=== PATIENT | male | born 1940 | race Caucasian/White ===

== ENCOUNTER 2023-01-15 11:45 | Inpatient (IN) | payer BC ==
[~2023-01-15] VITALS: Ht 167.6 cm; Wt 63.5 kg
[2023-01-15 12:17] LABS: BASOPHILS % (AUTO) 0.2 % (0.0-2.0); EOSINOPHILS # (AUTO) 0.1 K/uL (0.0-0.7); EOSINOPHILS % (AUTO) 0.5 % (0.0-6.0); HEMATOCRIT 50 % (39-51); HEMOGLOBIN 16.5 g/dL (13.5-17.5); LYMPHOCYTES # (AUTO) 0.3 K/uL (0.8-4.8); LYMPHOCYTES % (AUTO) 3.6 % (20.0-44.0); MEAN CORPUSCULAR HEMOGLOBIN 33 PG (26.0-33.0); MEAN CORPUSCULAR HGB CONC 33 g/dl (31.0-36.0); MEAN CORPUSCULAR VOLUME 100 fL (80-96); MONOCYTES # (AUTO) 0.1 K/uL (0.1-1.30); MONOCYTES % (AUTO) 1.1 % (2.0-12.0); NEUTROPHILS # (AUTO) 9.1 K/uL (1.8-8.9); NEUTROPHILS % (AUTO) 94.6 % (43.0-81.0); PLATELET COUNT (AUTO) 174 K/uL (150-450); RED BLOOD CELL COUNT(AUTO) 4.99 MIL/uL (4.5-6.0); RED CELL DISTRIBUTION WIDTH 14.1 % (11.5-15.0); WHITE BLOOD COUNT (AUTO) 9.6 K/uL (4.3-11.0)
[2023-01-15 12:25] LABS: CALCIUM, SERUM 9.6 mg/dL (8.5-10.1); CARBON DIOXIDE 24 mmol/L (21-32); CHLORIDE 104 mmol/L (98-107); CREATININE 1.5 mg/dL (0.6-1.3); GLUCOSE 90 mg/dL (74-106); POTASSIUM 4.1 mmol/L (3.5-5.1); SODIUM SERUM 142 mmol/L (136-145); UREA NITROGEN, BLOOD 24 mg/dL (7-18)
[2023-01-15 12:30] LABS: ALANINE AMINOTRANSFERASE 28 U/L (12-78); ALBUMIN 3.6 g/dL (3.4-5.0); ALKALINE PHOSPHATASE 72 U/L (46-116); ASPARTATE AMINOTRANSFERASE 19 U/L (15-37); BILIRUBIN,DIRECT 0.1 mg/dL (0.0-0.2); BILIRUBIN,TOTAL 0.6 mg/dL (0.2-1.0); LIPASE 34 U/L (16-77); TOTAL PROTEIN, SERUM 7.1 g/dL (6.4-8.2)
[2023-01-15] MEDS ORDERED: ONDANSETRON HCL/PF - ER 4 MG/2 ML VIAL IV ONE (12:30)
[2023-01-15] MEDS ORDERED: MORPHINE SULFATE INJ 2 MG/ML DISP.SYRIN IV ONE (12:30)
[2023-01-15] MEDS ORDERED: ONDANSETRON HCL/PF 4 MG/2 ML VIAL ONE (12:37)
[2023-01-15] MEDS ORDERED: MORPHINE SULFATE INJ 2 MG/ML DISP.SYRIN ONE (12:37)
[2023-01-15] MEDS ORDERED: TAMS-12 PO (13:25)
[2023-01-15] MEDS ORDERED: OMEP20CA15 PO (13:25)
[2023-01-15] MEDS ORDERED: ENAL2.5T17 PO (13:25)
[2023-01-15] MEDS ORDERED: DENO60DI SQ (13:25)
[2023-01-15] MEDS ORDERED: MIRT-91 PO (13:25)
[2023-01-15] MEDS ORDERED: KETO120S5 TP (13:25)
[2023-01-15] MEDS ORDERED: BUPR100T7 PO (13:25)
[2023-01-15] MEDS ORDERED: PRED5TAB PO (13:25)
[2023-01-15] MEDS ORDERED: TACR0.5C4 PO (13:25)
[2023-01-15] MEDS ORDERED: CHOL100043 PO (13:25)
[2023-01-15] MEDS ORDERED: B-CO1TAB PO (13:25)
[2023-01-15] MEDS ORDERED: TACR1CAP7 PO (13:25)
[2023-01-15] MEDS ORDERED: ASPI-1420 PO (13:25)
[2023-01-15] MEDS ORDERED: ATOR10TA PO (13:25)
[2023-01-15] MEDS ORDERED: MAG HYDROX/AL HYDROX/SIMETH 30 ML UDC PO PRN (13:30)
[2023-01-15] MEDS ORDERED: TEMAZEPAM 15 MG CAPSULE PO PRN (13:30)
[2023-01-15] MEDS ORDERED: LORAZEPAM INJ 2 MG/ML VIAL IV PRN (13:30)
[2023-01-15] MEDS ORDERED: ONDANSETRON HCL/PF 4 MG/2 ML VIAL IVP PRN (13:30)
[2023-01-15] MEDS ORDERED: AZTREONAM 1 G in IV NS 0.9% 100 ML IV ONE (13:30)
[2023-01-15] MEDS ORDERED: Z GUARD REMEDY 4 OZ OINT TP PRN (13:30)
[2023-01-15] MEDS ORDERED: ACETAMINOPHEN 325 MG TABLET PO PRN (13:30)
[2023-01-15] MEDS ORDERED: MAGNESIUM HYDROXIDE 30 ML UDC PO PRN (13:30)
[2023-01-15] MEDS ORDERED: MORPHINE SULFATE INJ 4 MG/ML DISP.SYRIN IV PRN (14:00)
[2023-01-15] MEDS: IV NS 0.9% 1,000 ML IV PRN (15:15)
[2023-01-15] MEDS: TAMSULOSIN 0.4 MG CAP.SR.24H PO SCH (17:57)
[2023-01-15] MEDS: ATORVASTATIN 10 MG TABLET PO SCH (17:57)
[2023-01-15] MEDS: TACROLIMUS ANHYDROUS 0.5 MG CAPSULE PO SCH (17:57)
[2023-01-15 20:00] VITALS: BP 100/49; TEMP 98.1; O2SAT 96
[2023-01-15] MEDS: MEROPENEM 1 G in IV NS 0.9% 100 ML IV SCH (21:07)
[2023-01-15] MEDS: MIRTAZAPINE 15 MG TABLET PO SCH (21:07)
[2023-01-16] MEDS: IV NS 0.9% 1,000 ML IV PRN ×2 (01:44→12:49)
[2023-01-16 07:00] LABS: BASOPHILS % (AUTO) 0.2 % (0.0-2.0); EOSINOPHILS # (AUTO) 0.2 K/uL (0.0-0.7); EOSINOPHILS % (AUTO) 1.5 % (0.0-6.0); HEMATOCRIT 40 % (39-51); HEMOGLOBIN 13.7 g/dL (13.5-17.5); LYMPHOCYTES # (AUTO) 1.1 K/uL (0.8-4.8); LYMPHOCYTES % (AUTO) 7.9 % (20.0-44.0); MEAN CORPUSCULAR HEMOGLOBIN 33 PG (26.0-33.0); MEAN CORPUSCULAR HGB CONC 34 g/dl (31.0-36.0); MEAN CORPUSCULAR VOLUME 97 fL (80-96); MONOCYTES # (AUTO) 1.5 K/uL (0.1-1.30); MONOCYTES % (AUTO) 10.2 % (2.0-12.0); NEUTROPHILS # (AUTO) 11.7 K/uL (1.8-8.9); NEUTROPHILS % (AUTO) 80.2 % (43.0-81.0); PLATELET COUNT (AUTO) 134 K/uL (150-450); RED BLOOD CELL COUNT(AUTO) 4.09 MIL/uL (4.5-6.0); RED CELL DISTRIBUTION WIDTH 13.8 % (11.5-15.0); WHITE BLOOD COUNT (AUTO) 14.6 K/uL (4.3-11.0)
[2023-01-16] MEDS: PANTOPRAZOLE 40 MG/PACK PACK PO SCH (07:30)
[2023-01-16 07:42] LABS: CALCIUM, SERUM 7.9 mg/dL (8.5-10.1); CHLORIDE 105 mmol/L (98-107); CREATININE 1.1 mg/dL (0.6-1.3); GLUCOSE 100 mg/dL (74-106); MAGNESIUM 1.4 mg/dL (1.8-2.4); PHOSPHORUS 3.9 mg/dL (2.5-4.9); POTASSIUM 4.2 mmol/L (3.5-5.1); SODIUM SERUM 138 mmol/L (136-145); UREA NITROGEN, BLOOD 31 mg/dL (7-18)
[2023-01-16 08:21] LABS: CARBON DIOXIDE 23 mmol/L (21-32)
[2023-01-16 08:29] VITALS: BP 97/56; TEMP 97.8; O2SAT 97
[2023-01-16] MEDS: ASPIRIN EC 81 MG TABLET.DR PO SCH (08:55)
[2023-01-16] MEDS: predniSONE 5 MG TABLET PO SCH (08:55)
[2023-01-16] MEDS: buPROPion SR 100 MG TABLET.ER PO SCH (08:55)
[2023-01-16] MEDS: TACROLIMUS ANHYDROUS 0.5 MG CAPSULE PO SCH ×2 (08:55→17:20)
[2023-01-16] MEDS: CHOLECALCIFEROL 1,000 UNIT TABLET (VIT D3) PO SCH (08:55)
[2023-01-16] MEDS: MEROPENEM 1 G in IV NS 0.9% 100 ML IV SCH ×2 (09:20→20:18)
[2023-01-16] MEDS ORDERED: MAGNESIUM OXIDE 400 MG TABLET PO ONE (11:00)
[2023-01-16] MEDS: Magnesium 1GM/D5W 100ML PREMIX 100 ML IV SCH ×4 (12:46→16:08)
[2023-01-16] MEDS ORDERED: DIATR MEGLU/DIATRIZOATE SODIUM 120 ML BOTTLE (GASTROGRAPHIN) ONE (12:55)
[2023-01-16 16:12] VITALS: BP 120/76; TEMP 97.7; O2SAT 96
[2023-01-16] MEDS: ATORVASTATIN 10 MG TABLET PO SCH (17:20)
[2023-01-16] MEDS: TAMSULOSIN 0.4 MG CAP.SR.24H PO SCH (17:20)
[2023-01-16 20:00] VITALS: BP 152/76; TEMP 98.1; O2SAT 96
[2023-01-16 20:58] VITALS: BP 126/87; TEMP 99.1; O2SAT 97
[2023-01-16] MEDS: MIRTAZAPINE 15 MG TABLET PO SCH (21:46)
[2023-01-17 05:03] LABS: APPEARANCE,URINE CLOUDY (CLEAR); BILIRUBIN,URINE NEGATIVE (NEGATIVE); BLOOD, URINE 2+ Ery/uL (NEGATIVE); COLOR,URINE YELLOW (YELLOW); KETONES,URINE 1+ mg/dL (NEGATIVE); LEUKOCYTE ESTERASE ,URINE NEGATIVE (NEGATIVE); NITRITE, URINE NEGATIVE (NEGATIVE); PH,URINE 5.5 (5.0-8.0); PROTEIN,URINE NEGATIVE (NEGATIVE); UGLUCOSE NEGATIVE (NEGATIVE); UROBILINOGEN,URINE 0.2 EU/dL (0.2)
[2023-01-17 05:37] LABS: ADD URINE CULTURE NO; BACTERIA,URINE Few /HPF (None Seen); SQUAMOUS EPITHELIAL CELL,UR None Seen /HPF (None Seen); URINE AMORPHOUS URATE Many /HPF (None Seen); WBC,URINE NONE SEEN /HPF (0-3)
[2023-01-17] MEDS: IV NS 0.9% 1,000 ML IV PRN (05:46)
[2023-01-17 06:18] LABS: EOSINOPHIL,URINE None Seen
[2023-01-17 06:18] LABS: BASOPHILS % (AUTO) 0.3 % (0.0-2.0); EOSINOPHILS # (AUTO) 0.4 K/uL (0.0-0.7); EOSINOPHILS % (AUTO) 3.7 % (0.0-6.0); HEMATOCRIT 38 % (39-51); HEMOGLOBIN 13.1 g/dL (13.5-17.5); LYMPHOCYTES % (AUTO) 9.8 % (20.0-44.0); MEAN CORPUSCULAR HEMOGLOBIN 33 PG (26.0-33.0); MEAN CORPUSCULAR HGB CONC 34 g/dl (31.0-36.0); MEAN CORPUSCULAR VOLUME 98 fL (80-96); MONOCYTES # (AUTO) 0.9 K/uL (0.1-1.30); MONOCYTES % (AUTO) 8.6 % (2.0-12.0); NEUTROPHILS # (AUTO) 8.2 K/uL (1.8-8.9); NEUTROPHILS % (AUTO) 77.6 % (43.0-81.0); PLATELET COUNT (AUTO) 126 K/uL (150-450); RED BLOOD CELL COUNT(AUTO) 3.93 MIL/uL (4.5-6.0); WHITE BLOOD COUNT (AUTO) 10.6 K/uL (4.3-11.0)
[2023-01-17 06:54] LABS: CALCIUM, SERUM 7.6 mg/dL (8.5-10.1); CARBON DIOXIDE 25 mmol/L (21-32); CHLORIDE 109 mmol/L (98-107); CREATININE 0.8 mg/dL (0.6-1.3); GLUCOSE 73 mg/dL (74-106); MAGNESIUM 2.1 mg/dL (1.8-2.4); POTASSIUM 3.6 mmol/L (3.5-5.1); SODIUM SERUM 142 mmol/L (136-145); UREA NITROGEN, BLOOD 22 mg/dL (7-18)
[2023-01-17] MEDS: PANTOPRAZOLE 40 MG/PACK PACK PO SCH (07:49)
[2023-01-17 08:46] VITALS: BP 136/83; TEMP 97.7; O2SAT 98
[2023-01-17] MEDS: MEROPENEM 1 G in IV NS 0.9% 100 ML IV SCH (10:12)
[2023-01-17] MEDS: ASPIRIN EC 81 MG TABLET.DR PO SCH (10:14)
[2023-01-17] MEDS: predniSONE 5 MG TABLET PO SCH (10:14)
[2023-01-17] MEDS: CHOLECALCIFEROL 1,000 UNIT TABLET (VIT D3) PO SCH (10:15)
[2023-01-17] MEDS: TACROLIMUS ANHYDROUS 0.5 MG CAPSULE PO SCH (10:15)
[2023-01-17] MEDS: buPROPion SR 100 MG TABLET.ER PO SCH (10:16)
[2023-01-17] MEDS ORDERED: ACID1TAB4 PO (10:31)
[2023-01-17] MEDS ORDERED: METR500T PO (10:31)
[2023-01-17] MEDS ORDERED: LEVO500T90 PO (10:31)
[2023-01-17 16:23] VITALS: BP 124/75; TEMP 98.1; O2SAT 95
[2023-01-17] MEDS ORDERED: keflex (19:01)
== END 2023-01-17 17:43 | disposition home or self-care (01) | DRG 371 ==
LOC: ER 11:47 → MED 16:00
PROVIDERS: ADMIT Nurse Practitioner Acute Care; ATTEND Nurse Practitioner Acute Care
DX: A04.9 Bacterial intestinal infection, unspecified (principal); N17.0 Acute kidney failure with tubular necrosis; K57.32 Diverticulitis of large intestine without perforation or abscess without bleeding; T86.12 Kidney transplant failure; E78.5 Hyperlipidemia, unspecified; E83.42 Hypomagnesemia; F32.A Depression, unspecified; D72.829 Elevated white blood cell count, unspecified; F41.9 Anxiety disorder, unspecified; Y92.009 Unspecified place in unspecified non-institutional (private) residence as the place of occurrence of the external cause; Z79.621 Long term (current) use of calcineurin inhibitor; N18.9 Chronic kidney disease, unspecified; Y83.0 Surgical operation with transplant of whole organ as the cause of abnormal reaction of the patient, or of later complication, without mention of misadventure at the time of the procedure; Z88.0 Allergy status to penicillin; Z85.46 Personal history of malignant neoplasm of prostate; I12.9 Hypertensive chronic kidney disease with stage 1 through stage 4 chronic kidney disease, or unspecified chronic kidney disease; W18.30XA Fall on same level, unspecified, initial encounter; Y93.9 Activity, unspecified; Y92.002 Bathroom of unspecified non-institutional (private) residence as the place of occurrence of the external cause; N40.0 Benign prostatic hyperplasia without lower urinary tract symptoms
CPT/HCPCS: 36415; 71045-TC; 76770-TC; 80048-TC; 80076-TC; 81001; 83690-TC; 83735-TC; 84100-TC; 84484-TC; 85025-TC; A4223; G0378; J2185; J2270; J2405; J3475; J3490; J7030; J7507; J7512; Q9963